=== PATIENT | male | born 1980 | race American Indian/Alaskan Native ===

== ENCOUNTER 2020-05-01 15:06 | Emergency (ER) | payer SELFPAY ==
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
[2020-05-01] MEDS ORDERED: predniSONE 20 MG TAB PO ONE (19:48)
[2020-05-01] MEDS ORDERED: ONDANSETRON 4 MG ODT TAB PO ONE (19:48)
[2020-05-01] MEDS ORDERED: HYDROcodone/ACETAMINOPHEN 5-325 MG TAB PO ONE (19:48)
[2020-05-01] MEDS ORDERED: IBUPROFEN 600 MG TAB PO ONE (19:48)
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
[2020-05-01 20:43] VITALS: BP 143/97
== END 2020-05-01 20:53 | disposition home or self-care (01) ==
LOC: ED 15:06
DX: S86.912A Strain of unspecified muscle(s) and tendon(s) at lower leg level, left leg, initial encounter (principal); M72.2 Plantar fascial fibromatosis; M76.61 Achilles tendinitis, right leg; I10 Essential (primary) hypertension; Z98.890 Other specified postprocedural states; Z79.899 Other long term (current) drug therapy; X58.XXXA Exposure to other specified factors, initial encounter; Y93.89 Activity, other specified; Y92.89 Other specified places as the place of occurrence of the external cause; Y99.8 Other external cause status
CPT/HCPCS: 73630; 99283; J7512; Q0162

== ENCOUNTER 2020-10-30 15:05 | Emergency (ER) | payer SELFPAY ==
[2020-10-30 16:10] VITALS: BP 134/104
--- NOTE | 2020-10-30 16:15 | Event Note ---
ED Screening Note Date of service: 10/30/20 Time: 16:11 ED Screening Note: The patient was evaluated in the emergency department for symptoms described in the history of present illness. He/she was evaluated in the context of the global COVID-19 pandemic, which necessitated consideration that the patient might be at risk for infection with the virus that causes COVID-19. Institutional protocols and algorithms that pertain to the evaluation of patients at risk for COVID-19 are in a state of rapid change based on information released by regulatory bodies including the CDC and federal and state organizations. These policies and algorithms were followed during the patient's care in the emergency department. Please note that these policies, procedures and recommendations changed on a rapid basis. 40-year-old obese -[place] male presents the emergency room stating he had vomited 3 times today with blood. Patient states that he woke up to vomiting. Patient states he last had a vomit about 1 PM. He does admit to diarrhea. Denies any abdominal pain fever or chills. He is up-to-date on his tetanus. He is not vaccinated for Covid. He reports he does not drink alcohol does admit to smoking cigarettes and marijuana. Denies any other illicit drugs. Patient denies any pain at this time no chest pain no shortness of breathing no dysuria. This initial assessment/diagnostic orders/clinical plan/treatment(s) is/are subject to change based on patients health status, clinical progression and re- assessment by fellow clinical providers in the ED. Further treatment and workup at subsequent clinical providers discretion. Patient/guardian urged not to elope from the ED as their condition may be serious if not clinically assessed and managed. Initial orders include:
--- NOTE | 2020-10-30 16:21 | Emergency Department Report ---
ED Abdominal Pain HPI - General Stated Complaint: THROWING UP BLOOD Time Seen by Provider: 10/30/20 16:21 - Related Data Home Medications Medication Instructions Recorded Confirmed Last Taken hydroCHLOROthiazide [Hctz] 25 mg PO QDAY 08/25/13 08/25/13 08/25/13 08:00 Previous Rx's Medication Instructions Recorded Last Taken Type Permethrin 5% [Acticin 5% CREAM] 1 applicatio TP ONCE #2 tube 08/26/13 Unknown Rx Erythromycin [Erythromycin Ophth 10 applic OU TID #1 tube 08/15/14 Unknown Rx Oint] Ibuprofen [Motrin] 800 mg PO Q8HR PRN #30 tablet 05/01/20 Unknown Rx methOCARBAMOL [Robaxin TAB] 750 mg PO Q12H PRN #20 tab 05/01/20 Unknown Rx predniSONE [Deltasone] 40 mg PO QDAY #10 tab 05/01/20 Unknown Rx Allergies Allergy/AdvReac Type Severity Reaction Status Date / Time No Known Allergies Allergy Verified 05/01/20 15:33 ED Review of Systems ROS: Stated complaint: THROWING UP BLOOD Other details as noted in HPI ED Past Medical Hx - Past Medical History Hx Hypertension: Yes - Surgical History Additional Surgical History: R Hand - Social History Smoking Status: Never Smoker Substance Use Type: None - Medications Home Medications: Home Medications Medication Instructions Recorded Confirmed Last Taken Type hydroCHLOROthiazide [Hctz] 25 mg PO QDAY 08/25/13 08/25/13 08/25/13 08:00 History Permethrin 5% [Acticin 5% CREAM] 1 applicatio TP ONCE #2 tube 08/26/13 Unknown Rx Erythromycin [Erythromycin Ophth 10 applic OU TID #1 tube 08/15/14 Unknown Rx Oint] Ibuprofen [Motrin] 800 mg PO Q8HR PRN #30 tablet 05/01/20 Unknown Rx methOCARBAMOL [Robaxin TAB] 750 mg PO Q12H PRN #20 tab 05/01/20 Unknown Rx predniSONE [Deltasone] 40 mg PO QDAY #10 tab 05/01/20 Unknown Rx ED Course Vital Signs 10/30/20 16:07 Pulse Rate 109 H Respiratory 18 Rate Blood Pressure 134/104 O2 Sat by Pulse 94 Oximetry - Reevaluation(s) Reevaluation #1: 10/30/20 16:21 IV and labs have been ordered as part of MSE process. Critical care attestation.: If time is entered above; I have spent that time in minutes in the direct care of this critically ill patient, excluding procedure time. ED Disposition Condition: Stable
[2020-10-30 16:57] LABS: Basophils % (Auto) 0.3 % (0.0-1.8); Eosinophils # (Auto) 0.1 K/mm3 (0.0-0.4); Eosinophils % (Auto) 0.8 % (0.0-4.3); Hematocrit 48.9 % (35.5-45.6); Hemoglobin 15.5 gm/dl (11.8-15.2); Lymphocytes # (Auto) 1.5 K/mm3 (1.2-5.4); Lymphocytes % (Auto) 9.2 % (13.4-35.0); Mean Corpuscular HGB Conc 32 % (32-34); Mean Corpuscular Volume 91 fl (84-94); Monocytes # (Auto) 0.9 K/mm3 (0.0-0.8); Monocytes % (Auto) 5.3 % (0.0-7.3); Platelet Count 291 K/mm3 (140-440); Red Blood Count 5.37 M/mm3 (3.65-5.03); Red Cell Distribution Width 15.2 % (13.2-15.2)
[2020-10-30 17:14] LABS: Alanine Aminotransferase 27 units/L (7-56); Albumin 4.3 g/dL (3.9-5); BUN/Creatinine Ratio 11; Blood Urea Nitrogen 11 mg/dL (9-20); Calcium 9.2 mg/dL (8.4-10.2); Hemolysis Index 5
[2020-10-30 17:21] LABS: INR 0.94 (0.87-1.13)
[2020-10-30 17:22] LABS: Partial Thromboplastin Time 26.6 Sec. (24.2-36.6)
--- NOTE | 2020-10-30 17:24 | Emergency Department Report ---
Blank Doc - Documentation Documentation: Patient eloped. The patient could not be found. Staff stated they saw the pa tient get up and walk out earlier. I did not evaluate this patient.
== END 2020-10-30 17:59 ==
LOC: ED 15:05
DX: R11.10 Vomiting, unspecified (principal); R79.1 Abnormal coagulation profile; Z53.21 Procedure and treatment not carried out due to patient leaving prior to being seen by health care provider
CPT/HCPCS: 36415; 80053; 83690; 85025; 85610; 85730

== ENCOUNTER 2021-01-10 09:46 | Outpatient (CLI) | payer OTHER ==
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
== END 2021-01-10 09:47 | disposition home or self-care (01) ==
LOC: XRAY 09:46
PROVIDERS: ATTEND Internal Medicine
DX: S62.312D Displaced fracture of base of third metacarpal bone, right hand, subsequent encounter for fracture with routine healing (principal); X58.XXXD Exposure to other specified factors, subsequent encounter; M25.541 Pain in joints of right hand